=== PATIENT | female | born 1955 | race Caucasian/White ===

== ENCOUNTER 2016-06-27 09:39 | Day surgery (SDC) | payer OTHER, MEDICARE ==
[2016-06-27] MEDS ORDERED: LACTATED RINGERS 1,000 ML IV ONE ×2 (10:07→11:31)
[2016-06-27] MEDS ORDERED: fentaNYL 250 MCG/5 ML VIAL IVP ONE (11:02)
[2016-06-27] MEDS ORDERED: MIDAZOLAM 2 MG/2 ML VIAL IVP ONE (11:02)
== END 2016-06-27 09:40 | disposition home or self-care (01) ==
PROC: 0D5N8ZZ Destruction of Sigmoid Colon, Via Natural or Artificial Opening Endoscopic (ICD-10-PCS; principal; 2016-06-27 10:30)
DX: Z12.11 Encounter for screening for malignant neoplasm of colon (principal); D12.7 Benign neoplasm of rectosigmoid junction; K57.30 Diverticulosis of large intestine without perforation or abscess without bleeding; K64.0 First degree hemorrhoids; I10 Essential (primary) hypertension; K21.9 Gastro-esophageal reflux disease without esophagitis; F31.9 Bipolar disorder, unspecified; F41.0 Panic disorder [episodic paroxysmal anxiety]; Z80.0 Family history of malignant neoplasm of digestive organs; Z88.2 Allergy status to sulfonamides; Z91.040 Latex allergy status
CPT/HCPCS: 45388; J3010; J7120

== ENCOUNTER 2016-08-02 10:54 | Outpatient (CLI) | payer OTHER, MEDICARE ==
--- NOTE | 2016-08-06 16:11 | Mammography Report ---
DIGITAL SCREENING MAMMOGRAM: 08/02/2016 CLINICAL INDICATION: A 60-year-old with family history of breast cancer, history of benign right nick st biopsy, for screening. COMPARISON: The patient's previous mammograms are not available for direct comparison. This will serv e as a new baseline. TECHNIQUE: Routine CC and MLO projections were obtained of the breasts. FINDINGS: The breasts demonstrate scattered fibroglandular densities bilaterally. In the right inner central breast, there is a possible nodule. Further evaluation with spot compression views and possi ble ultrasound is recommended. Punctate, typically benign calcifications are present. No mammographic ally suspicious findings are appreciated in the left breast. IMPRESSION: INCOMPLETE EXAMINATION. RECOMMENDATION: ADDITIONAL EVALUATION OF THE RIGHT BREAST ABOVE. BIRADS CATEGORY 0-INCOMPLETE. STANDARD QUALIFYING STATEMENTS 1. This examination was reviewed with the aid of Computer-Aided Detection (CAD). 2. A negative or benign imaging report should not delay biopsy if clinically suspicious findings are present. Consider surgical consultation if warranted. More than 5% of cancers are not identified by i maging. 3. Dense breasts may obscure an underlying neoplasm. JOB #: [id number] EXT JOB #:[id number]
== END 2016-08-02 10:55 | disposition home or self-care (01) ==
LOC: DI 10:54
PROVIDERS: ATTEND Family Medicine
DX: Z12.31 Encounter for screening mammogram for malignant neoplasm of breast (principal); Z80.3 Family history of malignant neoplasm of breast
CPT/HCPCS: 77067

== ENCOUNTER 2016-08-16 13:01 | Outpatient (CLI) | payer OTHER, MEDICARE ==
--- NOTE | 2016-08-16 15:55 | Ultrasound Report ---
REVISED: THIS REPORT WAS ORIGINALLY SIGNED ON 08/17/2016 @ 0941 ORDERS LINKED ON 08/28/2016 ADDITIONAL VIEWS OF THE RIGHT BREAST AND RIGHT BREAST ULTRASOUND: 08/16/2016 CLINICAL HISTORY: This is a 60-year-old female who has a small mass noted on recent screening mammogram dated 08/02/2016 in the 3 o'clock position of the right breast. Patient returns for additional views of the right breast and right breast ultrasound for further evaluation. Patient had a mother with breast cancer at age 74. Patient had a benign needle biopsy of the right breast in the past. TECHNIQUE: Coned-down compression craniocaudad and oblique lateral views of the right breast were obtained with Hologic full-field digital mammography. FINDINGS: A 1.2 cm by 0.7 cm by 1.1 cm oval-shaped mass is noted in the 3 o' clock position of the right breast 8 cm posteromedial to the right nipple. This mass is well circumscribed and has a benign appearance. Recommend a right breast ultrasound for further evaluation. RIGHT BREAST ULTRASOUND TECHNIQUE: Real-time scanning was performed with b2b outside sales representative static images obtained. FINDINGS: The medial aspect of the right breast was scanned in detail in the area of concern within the 3 o'clock position. No cyst or solid mass was noted in this region. Since no significant abnormality was noted on ultrasound, further evaluation is dependent upon the mammographic findings. The mammographic findings indicate that the small mass at the 3 o'clock position has benign features. It should be followed with a repeat right mammogram in 6 months for further evaluation. IMPRESSION: A 1.2 CM IN DIAMETER WELL-CIRCUMSCRIBED SOLID MASS IS NOTED IN THE 3 O'CLOCK POSITION OF THE RIGHT BREAST. THIS MASS WAS ONLY NOTED ON MAMMOGRAPHY. IT MOST LIKELY IS OF BENIGN ETIOLOGY. RECOMMEND PATIENT BE FOLLOWED WITH A REPEAT RIGHT MAMMOGRAM IN 6 MONTHS FOR FURTHER EVALUATION. BI-RADS category , probably benign findings. Short interval followup imaging study recommended. COMMENT: Patient was informed of the probably benign results by Dr. Ojeda. He recommended to her to return for repeat right mammogram in 6 months for further evaluation. STANDARD QUALIFYING STATEMENTS 1. This examination was reviewed with the aid of Computer-Aided Detection (CAD). 2. A negative or benign imaging report should not delay biopsy if clinically suspicious findings are present. Consider surgical consultation if warranted. More than 5% of cancers are not identified by imaging. 3. Dense breasts may obscure an underlying neoplasm. JOB #: [id number] EXT JOB #: [id number] [facility]PITALTimothy
== END 2016-08-16 13:02 | disposition home or self-care (01) ==
LOC: DI 13:01
PROVIDERS: ATTEND Family Medicine
DX: N63 Unspecified lump in breast (principal); Z80.3 Family history of malignant neoplasm of breast
CPT/HCPCS: 76642

== ENCOUNTER 2016-09-02 09:04 | Emergency (ER) | payer OTHER, MEDICARE ==
[2016-09-02] MEDS ORDERED: BENZONATATE 100 MG CAPSULE PO STA (10:11)
[2016-09-02] MEDS ORDERED: ALBUTEROL NEB 2.5 MG/3 ML INH STA (10:11)
[2016-09-02] MEDS ORDERED: guaiFENesin/DEXTROMETHORPHAN 10 ML UDC PO STA (10:12)
--- NOTE | 2016-09-02 10:15 | ED Physician Documentation ---
History of Present Illness - Stated complaint Stated Complaint: COUGH - Chief complaint Chief Complaint: Resp - Additonal information Additional information: hx from pt 60 femlae sick for 5 days cough wheezing congestion ROBBINS rest of family sick with same but less severe and improved spont no foreign travel Review of Systems Constitutional: reports: Fever (subj), Myalgias Ears: denies: Ear pain Nose: denies: Congestion Respiratory: reports: Dyspnea, Cough, Wheezing GI: denies: Abdominal Pain Musculoskeletal: denies: Extremity swelling Immunocompromised: denies: Immunocompromised PD PAST MEDICAL HISTORY - Past Medical History Cardiovascular: Hypertension, Other Respiratory: Pneumonia, Sleep apnea Endocrine/Autoimmune: None GI: GERD, Hemorrhoids : Frequency HEENT: None Psych: Anxiety, Bipolar disorder, Panic attacks, Post traumatic stress disorder , Other Musculoskeletal: Osteoarthritis Derm: None - Past Surgical History General: Other Ortho: Other /[employer]PRESENTATIVE: Other HEENT: Tonsil/Adenoidectomy - Present Medications Home Medications: Ambulatory Orders Medication Instructions Recorded Confirmed Alprazolam 0.5 mg PO TID 06/27/16 09/02/16 Bupropion HCl [Bupropion HCl Sr] 150 mg PO BID 06/27/16 09/02/16 Buspirone HCl 30 mg PO DAILY 06/27/16 09/02/16 FLUoxetine [PROzac] 10 mg PO DAILY 06/27/16 09/02/16 Hydrochlorothiazide 50 mg PO DAILY 06/27/16 09/02/16 Levothyroxine Sodium 25 mcg PO DAILY 06/27/16 09/02/16 [place] Carbonate [[place] 600 mg PO DAILY 06/27/16 09/02/16 Carbonate ER] Pantoprazole [Protonix] 40 mg PO BID 06/27/16 09/02/16 Prazosin [Minipress] 1 mg PO QPM 06/27/16 09/02/16 Trazodone HCl 100 mg PO DAILY 06/27/16 09/02/16 Albuterol Sulfate [Proair Hfa 2 puffs INH Q4H PRN #1 inhaler 09/02/16 Inhaler] Benzonatate [Tessalon] 100 mg PO TID PRN #20 capsule 09/02/16 Clonazepam 1 tab PO BID 09/02/16 09/02/16 Olmesartan Medoxomil [Benicar] 100 mg PO DAILY 09/02/16 09/02/16 - Allergies Allergies/Adverse Reactions: Allergies Allergy/AdvReac Type Severity Reaction Status Date / Time Sulfa (Sulfonamide Allergy Edema Verified 09/02/16 09:10 Antibiotics) adhesive tape AdvReac Unknown Verified 09/02/16 09:10 risperidone AdvReac Unknown Verified 09/02/16 09:10 - Social History Does the pt smoke?: No Smoking Status: Never smoker PD ED PE NORMAL - Vitals Vital signs reviewed: Yes - General General: Alert and oriented X 3 - HEENT HEENT: PERRL - Neck Neck: Supple, no meningeal sign - Cardiac Cardiac: RRR - Respiratory Respiratory: No respiratory distress, Other (harsh cough exp wheeze) - Extremities Extremities: Other (ankle surgical scar no calf swel of TTP) - Neuro Neuro: Alert and oriented X 3, No motor deficit Results - Vitals Vitals: Vital Signs - 24 hr 09/02/16 09/02/16 09/02/16 09:09 10:25 11:28 Temperature 36.9 C Heart Rate 96 81 84 Respiratory 18 16 20 Rate Blood Pressure 140/91 H 130/64 O2 Saturation 99 97 Oxygen O2 Source Room air - Rads (name of study) cxr Radiology: See rad report (no acute) Departure - Departure Disposition: 01 Home, Self Care Clinical Impression: Bronchitis Condition: Good Instructions: ED URI Viral Follow-Up: Garrett Bowman DO [Primary Care Provider] - Prescriptions: Albuterol Sulfate [Proair Hfa Inhaler] 2 puffs INH Q4H PRN #1 inhaler PRN Reason: Shortness Of Air/Wheezing Benzonatate [Tessalon] 100 mg PO TID PRN #20 capsule PRN Reason: to ease cough Comments: The xray was fine - no pneumonia And the other family members got better without antibiotics. So most likely this is a viral infection and I do not think antibiotics will help. But I did write for you to have an inhaler and some cough medication to ease your symptoms
[2016-09-02] MEDS ORDERED: ALBUTEROL NEB 2.5 MG/3 ML INH ONE (10:18)
[2016-09-02] MEDS ORDERED: guaiFENesin/DEXTROMETHORPHAN 10 ML UDC ONE (10:30)
[2016-09-02] MEDS ORDERED: BENZONATATE 100 MG CAPSULE PO ONE (10:30)
--- NOTE | 2016-09-02 11:47 | XRAY Preliminary Report ---
Exam: XR Chest 2 View PA/LAT IMPRESSION: No focal consolidation. [facility] SITE ID: [id number]
--- NOTE | 2016-09-02 11:49 | XRAY Report ---
EXAM: CHEST RADIOGRAPHY EXAM DATE: 09/02/2016 11:23 AM. CLINICAL HISTORY: Cough. COMPARISON: Chest radiograph dated 05/11/2014. TECHNIQUE: 2 views. FINDINGS: Lungs/Pleura: No focal opacities evident. No pleural effusion. No pneumothorax. Normal volumes. Mediastinum: Heart and mediastinal contours are unremarkable. Other: None. IMPRESSION: No focal consolidation. [facility] Referring Provider Line: [phone] SITE ID: [id number]
[2016-09-02 12:37] VITALS: BP 126/68
== END 2016-09-02 12:45 | disposition home or self-care (01) ==
LOC: ED 09:04
DX: J40 Bronchitis, not specified as acute or chronic (principal); I10 Essential (primary) hypertension; G47.30 Sleep apnea, unspecified; K21.9 Gastro-esophageal reflux disease without esophagitis; M19.90 Unspecified osteoarthritis, unspecified site
CPT/HCPCS: 71020; 94640; 99283; A9270; J7613

== ENCOUNTER 2017-01-07 15:48 | Outpatient (CLI) | payer OTHER, MEDICARE | END 2017-01-07 15:49 | disposition home or self-care (01) | LOC: SC 15:48 | PROVIDERS: ATTEND Internal Medicine Pulmonary Disease | DX: G47.10 Hypersomnia, unspecified (principal); G47.8 Other sleep disorders; R06.83 Snoring; G47.00 Insomnia, unspecified | CPT/HCPCS: 99203; 99212 ==

== ENCOUNTER 2017-03-14 09:57 | Outpatient (CLI) | payer BC, MEDICARE ==
--- NOTE | 2017-03-14 11:04 | Mammography Report ---
DIGITAL DIAGNOSTIC RIGHT MAMMOGRAM: 03/14/2017 CLINICAL INDICATION: Followup nodule right inner breast. TECHNIQUE: Right CC, MLO, true lateral, spot compression views. COMPARISON: 08/16/2016, 08/02/2016 FINDINGS: The right breast again demonstrates scattered fibroglandular densities. The nodule in the 3 o'clock position right breast is stable, measuring 10 mm maximal diameter. A few punctate, typically benign calcifications are present. Post-biopsy changes at the 11 o'clock position of the right breast are stable, no suspicious masses, clustered microcalcifications, or regions of architectural distortion are identified. IMPRESSION: BENIGN FINDINGS, WITH A STABLE CIRCUMSCRIBED NODULE AT THE 3 O' CLOCK POSITION OF THE RIGHT BREAST. RECOMMENDATION: Routine annual screening, next due in July 2017. BIRADS category 2 - benign findings. STANDARD QUALIFYING STATEMENTS 1. This examination was reviewed with the aid of Computer-Aided Detection (CAD) . 2. A negative or benign imaging report should not delay biopsy if clinically suspicious findings are present. Consider surgical consultation if warranted. More than 5% of cancers are not identified by imaging. 3. Dense breasts may obscure an underlying neoplasm. SANTOSH/ TD: 03/14/2017 12:03 DAYNA
== END 2017-03-14 09:58 | disposition home or self-care (01) ==
LOC: DI 09:57
PROVIDERS: ATTEND Family Medicine
DX: N63.12 Unspecified lump in the right breast, upper inner quadrant (principal); N63.14 Unspecified lump in the right breast, lower inner quadrant

== ENCOUNTER 2017-05-20 09:15 | Outpatient (CLI) | payer BC, MEDICARE | END 2017-05-20 09:16 | disposition home or self-care (01) | LOC: SC 09:15 | PROVIDERS: ATTEND Nurse Practitioner Family | DX: G47.33 Obstructive sleep apnea (adult) (pediatric) (principal) | CPT/HCPCS: 99212; 99214 ==

== ENCOUNTER 2017-08-15 16:43 | Outpatient (CLI) | payer BC, MEDICARE ==
--- NOTE | 2017-08-20 17:25 | Mammography Report ---
DIGITAL SCREENING MAMMOGRAM: 08/15/2017 CLINICAL INDICATION: A 61-year-old with history of benign right breast biopsy for screening. COMPARISON: 07/2016, 02/2017. TECHNIQUE: Routine CC and MLO projections were obtained of the breasts. FINDINGS: The breasts again demonstrate scattered fibroglandular densities bilaterally. Post-biopsy changes in the right breast are stable. A few punctate, typically benign calcifications are present. Circumscribed nodule in the medial right breast is unchanged. No suspicious masses, clustered microcalcifications, or regions of architectural distortion are identified. IMPRESSION: BENIGN FINDINGS. RECOMMENDATION: Routine annual screening unless otherwise clinically indicated. BIRADS category 2 benign findings. STANDARD QUALIFYING STATEMENTS 1. This examination was reviewed with the aid of Computed-Aided Detection (CAD). 2. A negative or benign imaging report should not delay biopsy if clinically suspicious findings are present. Consider surgical consultation if warranted. More than 5% of cancers are not identified by imaging. 3. Dense breasts may obscure an underlying neoplasm. TD: 08/20/2017 15:29
== END 2017-08-15 16:44 | disposition home or self-care (01) ==
LOC: DI 16:43
PROVIDERS: ATTEND Family Medicine
DX: Z12.31 Encounter for screening mammogram for malignant neoplasm of breast (principal)
CPT/HCPCS: 77067

== ENCOUNTER 2017-08-27 09:12 | Outpatient (CLI) | payer BC, MEDICARE | END 2017-08-27 09:13 | disposition home or self-care (01) | LOC: DI 09:12 | PROVIDERS: ATTEND Family Medicine | DX: R01.1 Cardiac murmur, unspecified (principal); I51.7 Cardiomegaly | CPT/HCPCS: 93306 ==

== ENCOUNTER 2017-09-05 08:50 | Outpatient (CLI) | payer BC, MEDICARE ==
[2017-09-05] MEDS ORDERED: REGADENOSON 0.4 MG/5 ML SYRINGE IVP ONE ×2 (10:27→11:19)
--- NOTE | 2017-09-05 14:10 | Nuclear Medicine Report ---
Procedure Date: 09/05/2017 Accession Number: [id number] / [id number] Procedure: NM - Myocardial Perfusion STR/RST CPT Code: FULL RESULT: EXAM: SINGLE-ISOTOPE PHARMACOLOGICAL STRESS TEST WITH REGADENOSON. SINGLE-ISOTOPE AND ONE-DAY REST/STRESS MYOCARDIAL PERFUSION SCANS WITH TOMOGRAPHIC IMAGING, QUANTITATIVE ANALYSIS, WALL MOTION ANALYSIS AND CALCULATION OF EJECTION FRACTION. EXAM DATE: 09/05/2017 01:15 PM. CLINICAL HISTORY: CHEST PAIN. COMPARISON: None available. TECHNIQUE: After the intravenous administration of 10.4 mCi of Tc-99m sestamibi, a rest myocardial perfusion scan was done with tomography. Motion correction was applied when appropriate. After an appropriate delay, pharmacological stress was performed with the infusion of 0.4 mg regadenoson per protocol. According to protocol, 42.9 mCi of Tc-99m sestamibi was injected for stress myocardial perfusion scan. Motion correction was applied when appropriate. Gated tomographic images were obtained for wall motion analysis and computation of left ventricular ejection fraction. EKG interpretation provided by the nurse practitioner: Less than 0.[address] depression. "Mild infusion sxs" FINDINGS: Images show a small, moderate severity fixed distal septal perfusion defect. No other convincing fixed or reversible perfusion defects. Computer generated stress scores: Summed stress score 2 Summed rest score 2 Summed difference score 2 Wall motion analysis demonstrates no focal wall motion abnormality. The left ventricular end-diastolic volume is 54 cc. The left ventricular end-systolic volume is 7 cc. The left ventricular ejection fraction is calculated to be 87%. IMPRESSION: 1. Images show a small, moderate severity fixed distal septal defect. This may represent normal variant septal thickening. No other convincing fixed or reversible perfusion defects. 2. Left ventricular ejection fraction of 87%. 3. Normal segmental and global wall motion. 4. Normal left ventricular cavity size, no change with stress. 5. Based on the computer generated stress scores, mildly abnormal study, mild ischemia. Based on visual analysis, this is believed to be an overestimate. [facility]
--- NOTE | 2017-09-05 16:15 | CARDIAC PROCEDURE NOTE ---
DATE OF SERVICE: 09/05/2017 Physician: ERICA Jimenez PCP: Dr. Garrett Bowman. PROCEDURE: Pharmacologic cardiac stress test. PROCEDURE SYMPTOMS: Chest pain. CARDIAC RISK FACTORS 1. Age. 2. Hypertension. 3. Family history. PREVIOUS CARDIAC PROCEDURES: None. CLINICAL HISTORY: A 61-year-old female without known coronary artery disease. She has no current symptoms. No medications were held. INITIAL RESTING VITAL SIGNS: Blood pressure 144/82, heart rate 77, height 64 inches, weight 176 pounds, BMI 30.32. PROCEDURE AND FINDINGS: The patient identity and date verified. Consent signed. Pharmaceutical check. Pharmacologic stress testing was performed with Lexiscan at a dose of 0.4 mg over 10 seconds. The heart rate increased to 102 beats per minute from the infusion. Blood pressure response was normal during the stress procedure. The patient developed mild infusion- related symptoms, which include shallow breathing, tingly feet, and facial warmth. The symptoms resolved spontaneously. The resting ECG demonstrated normal sinus rhythm with nonspecific flattened T waves. Maximum ST segment depression with stress was less than 0.5 mm. There was rare ectopy. FINAL IMPRESSIONS 1. Negative electrocardiogram for ischemia in the setting of vasodilator stress. 2. Nondiagnostic stress test for angina. 3. Rare PVC. DISCUSSION AND RECOMMENDATIONS: Await myocardial perfusion report. TD: 09/05/2017 12:50 MTDD
[2017-09-05 19:42] VITALS: BP 144/82
== END 2017-09-05 08:51 | disposition home or self-care (01) ==
LOC: DI 08:50
PROVIDERS: ATTEND Family Medicine
DX: R07.9 Chest pain, unspecified (principal); I10 Essential (primary) hypertension
CPT/HCPCS: 78452; 93017; A9500; J2785

== ENCOUNTER 2017-12-12 11:43 | Outpatient (CLI) | payer BC, MEDICARE ==
[2017-12-12 19:04] LABS: ALBUMIN 4.2 g/dL (3.2-5.5); ALBUMIN/GLOBULIN RATIO 1.8 (1.0-2.2); CALCIUM 9.9 mg/dL (8.5-10.3); CREATININE 0.8 mg/dL (0.4-1.0); TOTAL PROTEIN 6.5 g/dL (6.7-8.2)
== END 2017-12-12 11:44 ==
LOC: LAB.WCP 11:43
PROVIDERS: ATTEND Family Medicine
DX: I10 Essential (primary) hypertension (principal)
CPT/HCPCS: 36415; 80053

== ENCOUNTER 2018-10-06 14:51 | Outpatient (CLI) | payer BC, MEDICARE ==
--- NOTE | 2018-10-07 08:48 | Mammography Report ---
Reason: SCREENING MAMMO Procedure Date: 10/06/2018 Accession Number: [id number] / [id number] Procedure: EMMANUEL - Screening Mammo w/Aron CPT Code: FULL RESULT: EXAM: Screening Mammo w/Aron DATE: 10/06/2018 3:37 PM CLINICAL HISTORY: Screening encounter. Family history of breast cancer in the mother at the age of 71. History of right breast lumpectomy in 1991 for inconclusive biopsy final pathology was benign. TECHNIQUE: (B) - Bilateral CC and MLO views were obtained. COMPARISON: 08/15/2017 through 08/02/2016. PARENCHYMAL PATTERN: (A) - The breast(s) demonstrate(s) scattered fibroglandular densities. FINDINGS: Postsurgical changes in the right breast are stable. There are no suspicious masses, calcifications, or areas of distortion. IMPRESSION: Benign findings. BI-RADS category 2. RECOMMENDATION: (ANNUAL) - Recommend routine annual screening mammography. BI-RADS CATEGORY: (2) - Benign Findings. STANDARD QUALIFYING STATEMENTS: 1. This examination was not reviewed with the aid of Computer-Aided Detection (CAD). 2. A negative or benign imaging report should not preclude biopsy if clinically suspicious findings are present. 3. Dense breasts may obscure an underlying neoplasm. 4. This examination was reviewed with the aid of 3D breast imaging (tomosynthesis).
== END 2018-10-06 14:52 | disposition home or self-care (01) ==
LOC: DI 14:51
DX: Z12.31 Encounter for screening mammogram for malignant neoplasm of breast (principal); Z80.3 Family history of malignant neoplasm of breast
CPT/HCPCS: 77063; 77067

== ENCOUNTER 2018-11-19 09:24 | Outpatient (CLI) | payer BC, MEDICARE ==
--- NOTE | 2018-11-20 09:52 | DEXA Report ---
Reason: POSTMENOPAUSAL Procedure Date: 11/19/2018 Accession Number: [id number] / [id number] Procedure: DEX - Dexa Spine and/or Hip CPT Code: FULL RESULT: EXAM: Dexa Spine and/or Hip DATE: 11/19/2018 10:00 AM CLINICAL HISTORY: POSTMENOPAUSAL TECHNIQUE: Dual energy x-ray absorptiometry (DXA) was performed on a [employer] System. Regions measured are the AP Spine, femoral neck, and if needed forearm. COMPARISON: None. In accordance with the International Society for Clinical Densitometry (ISCD) guidelines, data from previous exams may be reanalyzed using current recommendations and techniques. This is done to allow a more accurate basis for comparison with the current study. FINDINGS: The data for the lumbar spine is as follows: BMD (g/cm/cm) T-SCORE Z-SCORE REGION L1 1.265 1.1 2.4 L2 1.357 1.3 2.6 L3 1.260 0.5 1.8 L4 1.040 -1.3 0.0 TOTAL 1.228 0.4 1.7 NOTE: All evaluable vertebrae are used for classification The data for the hip is as follows: BMD (g/cm/cm) T-SCORE Z-SCORE REGION Neck 0.788 -1.8 -0.5 TOTAL 0.899 -0.9 0.1 NOTE: The femoral neck or total proximal femur, whichever is lowest, is used for classification. IMPRESSION: THE WHO CLASSIFICATION BASED ON THE INTERNATIONAL REFERENCE STANDARD IS OSTEOPENIA. THE FRACTURE RISK IS INCREASED. RECOMMENDATION: Patients with diagnosis of osteoporosis or osteopenia should have regular bone mineral density assessment. For those eligible for Medicare, routine testing is allowed once every 2 years. Testing frequency can be increased for patients who have rapidly progressing disease or for those who are receiving medical therapy to restore bone mass. COMMENT: World Health Organization (WHO) definitions for osteoporosis and osteopenia: NORMAL BMD: T-score at -1.0 or higher, fracture risk is low OSTEOPENIA BMD: T-score between -1.0 and -2.5, fracture risk is increased. OSTEOPOROSIS BMD: T-score at -2.5 or lower, fracture risk is high. National Osteoporosis Foundation recommends: 1. Obtain adequate dietary calcium (at least 1200 mg per day) and vitamin D (400-800 international units per day). 2. Participate, as appropriate, in regular weightbearing and muscle-strengthening exercise. 3. Avoid tobacco use and reduce alcohol and caffeine intake. 4. For more detailed information see the website at www.NOF.org.
== END 2018-11-19 09:25 | disposition home or self-care (01) ==
LOC: DI 09:24
PROVIDERS: ATTEND Family Medicine
DX: M85.89 Other specified disorders of bone density and structure, multiple sites (principal); Z78.0 Asymptomatic menopausal state
CPT/HCPCS: 77080

== ENCOUNTER 2019-01-16 11:02 | Outpatient (CLI) | payer BC, MEDICARE ==
--- NOTE | 2019-01-16 12:47 | Mammography Report ---
Reason: MASTALGIA Procedure Date: 01/16/2019 Accession Number: [id number] / [id number] Procedure: EMMANUEL - Diagnostic Dig LT CPT Code: FULL RESULT: EXAM: Diagnostic Dig LT DATE: 01/16/2019 11:56 AM CLINICAL HISTORY: Left breast pain TECHNIQUE: (L) - Left CC and MLO views were obtained. COMPARISON: 10/06/2018, 08/15/2017, 03/14/2017 08/16/2016, 08/02/2016 PARENCHYMAL PATTERN: (A) - The breasts demonstrate scattered fibroglandular densities. FINDINGS: No significant interval change. There are no suspicious masses, calcifications, or areas of distortion in the left breast. IMPRESSION: Negative examination. BI-RADS category 1. RECOMMENDATION: (ANNUAL) - Recommend routine annual screening mammography. Return to routine screening September 2019 BI-RADS CATEGORY: (1) - Negative. STANDARD QUALIFYING STATEMENTS: 1. This examination was not reviewed with the aid of Computer-Aided Detection (CAD). 2. A negative or benign imaging report should not preclude biopsy if clinically suspicious findings are present. 3. Dense breasts may obscure an underlying neoplasm. 4. This examination was reviewed with the aid of 3D breast imaging (tomosynthesis).
== END 2019-01-16 11:03 | disposition home or self-care (01) ==
LOC: DI 11:02
PROVIDERS: ATTEND Family Medicine
DX: N64.4 Mastodynia (principal)

== ENCOUNTER 2019-03-05 10:26 | Outpatient (CLI) | payer BC, MEDICARE ==
[2019-03-05 10:37] LABS: BASOPHILS # (AUTO) 0.1 10^3/uL (0.0-0.1); BASOPHILS % (AUTO) 0.8 %; EOSINOPHILS # (AUTO) 0.1 10^3/uL (0.0-0.7); EOSINOPHILS % (AUTO) 0.8 %; HGB - HEMOGLOBIN 13.7 g/dL (12.0-16.0); LYMPHOCYTES # (AUTO) 1.4 10^3/uL (1.5-3.5); LYMPHOCYTES % (AUTO) 21.7 %; MEAN CORPUSCULAR HEMOGLOBIN 33.8 pg (27.0-31.0); MEAN CORPUSCULAR HGB CONC 35.1 g/dL (32.0-36.0); MEAN CORPUSCULAR VOLUME 96.3 fL (81.0-99.0); MEAN PLATELET VOLUME 9.3 fL (7.9-10.8); MONOCYTES # (AUTO) 0.4 10^3/uL (0.0-1.0); MONOCYTES % (AUTO) 6.5 %; NEUTROPHILS # (AUTO) 4.5 10^3/uL (1.5-6.6); NEUTROPHILS % (AUTO) 69.9 %; PLT - PLATELET COUNT 243 10^3/uL (130-450); RED BLOOD COUNT 4.05 10^6/uL (4.20-5.40); RED CELL DISTRIBUTION WIDTH 13.2 % (12.0-15.0); WHITE BLOOD COUNT 6.4 x10^3/uL (4.8-10.8)
[2019-03-05 10:49] LABS: ALBUMIN 4.3 g/dL (3.2-5.5); ALBUMIN/GLOBULIN RATIO 1.7 (1.0-2.2); BILIRUBIN,TOTAL 1.6 mg/dL (0.2-1.0); CALCIUM 9.6 mg/dL (8.5-10.3); CREATININE 0.9 mg/dL (0.4-1.0); TOTAL PROTEIN 6.9 g/dL (6.7-8.2)
== END 2019-03-05 10:27 | disposition home or self-care (01) ==
LOC: LAB 10:26
PROVIDERS: ATTEND Podiatrist Foot & Ankle Surgery
DX: Z01.812 Encounter for preprocedural laboratory examination (principal)
CPT/HCPCS: 36415; 80053; 85025; 93005

== ENCOUNTER 2019-11-11 09:03 | Outpatient (CLI) | payer OTHER, MEDICARE ==
--- NOTE | 2019-11-11 16:22 | XRAY Report ---
PROCEDURE: Lumbar Spine 2 View INDICATIONS: ACUTE LOW BACK PAIN TECHNIQUE: 3 views of the lumbar spine were acquired. COMPARISON: X-ray thoracic spine 11/11/2019 FINDINGS: Bones: 5 [id number] vertebrae are present. There is there is trace retrolisthesis of L2 on L3, L3 on L4. Moderate disc space narrowing is present at L1-L2, L2-3, L3-4, mild L4-5 and L5-S1. Modera te foraminal narrowing is present at L5-S1.. No vertebral body compression fractures. No suspicious bony lesions. Soft tissues: Overlying bowel gas pattern is normal. No suspicious soft tissue calcifications. IMPRESSION: Multilevel degenerative changes as above most notable at L2-3 and L5-S1. Reviewed by: Cami Gipson MD on 11/11/2019 4:20 PM PDT Approved by: Cami Gipson MD on 11/11/2019 4:20 PM PDT Station ID: [id number]
== END 2019-11-11 23:59 | disposition home or self-care (01) ==
LOC: DI.WCP 09:03
PROVIDERS: ATTEND Family Medicine
DX: M43.16 Spondylolisthesis, lumbar region (principal); M51.36 Other intervertebral disc degeneration, lumbar region; M51.37 Other intervertebral disc degeneration, lumbosacral region; M48.07 Spinal stenosis, lumbosacral region
CPT/HCPCS: 72100

== ENCOUNTER 2020-01-29 13:40 | Outpatient (CLI) | payer OTHER, MEDICARE ==
--- NOTE | 2020-01-29 15:12 | MRI Report ---
PROCEDURE: Lumbar Spine W/O INDICATIONS: CHRONIC LOW BACK PAIN TECHNIQUE: Noncontrast sagittal T1 spin echo and T2 fast echo, coronal T2, sagittal STIR, axial T1 and T2 fast s pin echo through the lumbar spine. COMPARISON: Plain films dated 11.10 FINDINGS: Image quality: Excellent. Alignment and Curvature: 5 lumbar type vertebral bodies are present by plain film. There is mild diff use leftward curvature of the mid/upper lumbar spine. There is loss of normal lumbar lordosis. Mild g rade 1 retrolisthesis of T12 on L1, L1 on L2, L2 on L3, L3 on L4, and L4 on L5. Bone Marrow: Marrow is of normal overall signal. No acute vertebral body compression fractures. Mi ld reactive signal within the end plates adjacent to the T12-L1, L2-L3, L3-L4, and L4-L5 intervertebr al discs. Spinal Cord: Conus medullaris terminates at the L1-L2 disc space level. Visualized cord demonstrate s normal signal and size. Paraspinous Soft Tissues: No paravertebral masses. T12-L1: Moderate disc height loss and desiccation. Mild diffuse disc bulge. Mild facet and ligament flavum hypertrophy. Mild canal stenosis. Mild bilateral foraminal stenosis. L1-L2: Moderate disc height loss and desiccation. Mild diffuse disc bulge. Mild facet and ligament flavum hypertrophy. Mild canal stenosis. Mild bilateral foraminal stenosis. L2-L3: Moderate disc height loss and desiccation. Mild diffuse disc bulge with superimposed broad- based right posterolateral protrusion. Mild facet and ligament flavum hypertrophy. Mild epidural lipo matosis. Mild canal stenosis. Mild bilateral foraminal stenosis. L3-L4: Mild disc height loss and desiccation. Mild diffuse disc bulge. Mild facet and ligament flav um hypertrophy. Mild epidural lipomatosis. Mild canal stenosis. Mild bilateral foraminal stenosis. L4-L5: Mild disc height loss and desiccation. Mild diffuse disc bulge. Mild facet and ligament flav um hypertrophy. Mild canal stenosis. Moderate subarticular foraminal stenosis bilaterally. L5-S1: Mild diffuse disc bulge. Mild disc desiccation. Mild bilateral facet hypertrophy. Mild canal stenosis. Mild bilateral foraminal stenosis. IMPRESSION: 1. Multilevel degenerative disc and facet disease, in addition to epidural lipomatosis and ligamentum flavum hypertrophy. 2. Mild multilevel canal stenoses. 3. Multilevel foraminal stenoses, worst at L4-L5 bilaterally where there are moderate foraminal steno ses present. Reviewed by: Sheri Gómez MD on 01/29/2020 3:11 PM PST Approved by: Sheri Gómez MD on 01/29/2020 3:11 PM PST Station ID: [id number]
== END 2020-01-29 13:41 | disposition home or self-care (01) ==
LOC: DI 13:40
PROVIDERS: ATTEND Family Medicine
DX: M51.36 Other intervertebral disc degeneration, lumbar region (principal); M47.817 Spondylosis without myelopathy or radiculopathy, lumbosacral region; M47.816 Spondylosis without myelopathy or radiculopathy, lumbar region; M48.061 Spinal stenosis, lumbar region without neurogenic claudication; M51.37 Other intervertebral disc degeneration, lumbosacral region; M48.07 Spinal stenosis, lumbosacral region
CPT/HCPCS: 72148

== ENCOUNTER 2020-07-11 08:00 | Outpatient (CLI) | payer OTHER, MEDICARE ==
[2020-07-11 18:01] LABS: BASOPHILS % (AUTO) 0.6 %; EOSINOPHILS # (AUTO) 0.6 10^3/uL (0.0-0.7); HCT - HEMATOCRIT 38.8 % (37.0-47.0); LYMPHOCYTES # (AUTO) 1.1 10^3/uL (1.5-3.5); LYMPHOCYTES % (AUTO) 20.8 %; MEAN CORPUSCULAR HEMOGLOBIN 33.5 pg (27.0-31.0); MEAN CORPUSCULAR HGB CONC 33.5 g/dL (32.0-36.0); MEAN PLATELET VOLUME 10.1 fL (7.9-10.8); MONOCYTES # (AUTO) 0.3 10^3/uL (0.0-1.0); NEUTROPHILS # (AUTO) 3.2 10^3/uL (1.5-6.6); NEUTROPHILS % (AUTO) 60.2 %; PLT - PLATELET COUNT 215 10^3/uL (130-450); RED BLOOD COUNT 3.88 10^6/uL (4.20-5.40); RED CELL DISTRIBUTION WIDTH 12.9 % (12.0-15.0); WHITE BLOOD COUNT 5.3 x10^3/uL (4.8-10.8)
[2020-07-11 18:17] LABS: ALBUMIN 4.6 g/dL (3.2-5.5); ALBUMIN/GLOBULIN RATIO 2.2 (1.0-2.2); ALKALINE PHOSPHATASE 70 IU/L (42-121); ALT ALANINE AMINOTRANSFERASE 13 IU/L (10-60); AST ASPARTATE AMINOTRANSFERASE 14 IU/L (10-42); BILIRUBIN,TOTAL 1.4 mg/dL (0.2-1.0); BUN - BLOOD UREA NITROGEN 18 mg/dL (6-20); CALCIUM 9.5 mg/dL (8.5-10.3); CARBON DIOXIDE - CO2 27 mmol/L (21-32); CHLORIDE 101 mmol/L (101-111); CHOL/HDL RATIO 2.2 (<4.4); CHOLESTEROL 249 mg/dL; CREATININE 0.8 mg/dL (0.4-1.0); GFR - MDRD 73 (>89); GLUCOSE 95 mg/dL (70-100); HDL CHOLESTEROL 112 mg/dL; LDL CHOLESTEROL,CALCULATED 118 mg/dL; LDL/HDL RATIO 1.1 (<4.4); POTASSIUM 3.6 mmol/L (3.5-5.0); SODIUM 139 mmol/L (135-145); TOTAL PROTEIN 6.7 g/dL (6.7-8.2); TRIGLYCERIDES 97 mg/dL; VLDL CHOLESTEROL 19 mg/dL
[2020-07-11 18:30] LABS: THYROID STIMULATING HORMONE 1.9 uIU/mL (0.34-5.60)
== END 2020-07-11 23:59 | disposition home or self-care (01) ==
LOC: LAB.WCP 08:00
PROVIDERS: ATTEND Family Medicine
DX: E78.5 Hyperlipidemia, unspecified (principal); E03.9 Hypothyroidism, unspecified; I10 Essential (primary) hypertension
CPT/HCPCS: 36415; 80053; 80061; 83721; 84443; 85025

== ENCOUNTER 2020-08-23 09:46 | Outpatient (CLI) | payer OTHER, MEDICARE ==
--- NOTE | 2020-08-24 14:08 | Mammography Report ---
BILATERAL DIGITAL SCREENING MAMMOGRAM 3D/2D: 08/23/2020 CLINICAL: Routine screening. Comparison is made to exams dated: 10/06/2018 mammogram, 08/15/2017 mammogram, 03/14/2017 mammogram, mammogram, and 08/02/2016 mammogram - [facility]. There are scattered fibr oglandular elements in both breasts. No significant masses, calcifications, or other findings are seen in either breast. There has been no significant interval change. IMPRESSION: NEGATIVE There is no mammographic evidence of malignancy. A 1 year screening mammogram is recommended. This exam was interpreted at Station ID: [id number]. NOTE: For mammograms, a report in lay terms will be sent to the patient. Approximately 15% of breast malignancies will not be visualized mammographically. In the management of a palpable breast mass, a negative mammogram must not discourage biopsy of a clinically suspicious lesion. Electronically Signed By: Mickey Kim M.D. aty/aaronrad:08/23/2020 14:09:12 ACR BI-RADS Category 1: Negative 3341F PARENCHYMAL PATTERN: (A) - The breast(s) demonstrate(s) scattered fibroglandular densities. BI-RADS CATEGORY: (1) - 1 RECOMMENDATION: (ANNUAL) - Recommend routine annual screening mammography. [id number] 1 year screening LATERALITY: (B)
== END 2020-08-23 09:47 | disposition home or self-care (01) ==
LOC: DI 09:46
DX: Z12.31 Encounter for screening mammogram for malignant neoplasm of breast (principal)

== ENCOUNTER 2020-09-14 11:14 | Outpatient (CLI) | payer OTHER, MEDICARE ==
--- NOTE | 2020-09-14 13:13 | XRAY Report ---
PROCEDURE: Tib/Fib RT INDICATIONS: CONTUSION OF R LOWER LEG TECHNIQUE: 2 views of the tibia and fibula were acquired. COMPARISON: None currently available. FINDINGS: Bones: No acute fractures or dislocations. No suspicious bony lesions. Note is made of prior ankle arthroplasty, calcaneal osteotomy, and interosseous membrane fusion at the distal tibia/fibula with 2 transverse screws in this area and no evidence of device loosening or disruption. Soft tissues: No suspicious soft tissue calcifications or masses. IMPRESSION: Old operative procedure distal tibia/fibula and calcaneus, but no acute disease. Normal alignment. Reviewed by: Mykel Penn MD on 09/14/2020 1:12 PM PDT Approved by: Mykel Penn MD on 09/14/2020 1:12 PM PDT Station ID: [id number]
== END 2020-09-14 11:15 | disposition home or self-care (01) ==
LOC: DI.N 11:14
PROVIDERS: ATTEND Nurse Practitioner
DX: S80.11XA Contusion of right lower leg, initial encounter (principal)

== ENCOUNTER 2021-05-31 09:15 | Emergency (ER) | payer OTHER, MEDICARE ==
--- NOTE | 2021-05-31 09:39 | ED Physician Documentation ---
PD HPI BACK PAIN - Stated complaint Stated Complaint: BACK PX - Chief complaint Chief Complaint: Back Pain - History obtained from History obtained from: Patient - History of Present Illness Timing - onset: How many days ago (4) Timing - duration: Days (4) Timing - details: Abrupt onset (onset of left lateral lower ribs Saturday when fell and struck the left lateral chest. Continues with pain locally with movement and breathing. No cough nor fevers.), Still present Location: Mid, Lower, Left Quality: Pain, Sharp Associated symptoms: No: Fever, Weakness, Numbness, Incontinent of urine Improves with: Rest Worsened by: Movement, Palpation, Other (breathing) Contributing factors: Trauma (she states she slipped and fell, striking left posterior/lateral chest wall.) Similar symptoms before: Has not had sx before Recently seen: Not recently seen Review of Systems Constitutional: denies: Fever, Chills Nose: denies: Rhinorrhea / runny nose, Congestion Throat: denies: Sore throat Respiratory: denies: Cough GI: denies: Abdominal Pain, Nausea, Vomiting, Diarrhea Skin: denies: Rash PD PAST MEDICAL HISTORY - Past Medical History Cardiovascular: Hypertension, High cholesterol, Other Respiratory: Pneumonia, Sleep apnea Endocrine/Autoimmune: None, HyPOthyroidism GI: GERD, Hemorrhoids : Frequency HEENT: None Psych: Anxiety, Bipolar disorder, Panic attacks, Post traumatic stress disorder, Other Musculoskeletal: Osteoarthritis Derm: None - Past Surgical History General: Other Ortho: Other /DIETARY CLERK: Other HEENT: Tonsil/Adenoidectomy - Present Medications Home Medications: Ambulatory Orders Medication Instructions Recorded Confirmed ALPRAZolam [Alprazolam] 1.5 mg PO TID 06/27/16 05/31/21 Buspirone HCl 60 mg PO DAILY 06/27/16 05/31/21 FLUoxetine [PROzac] 15 mg PO DAILY 06/27/16 05/31/21 Prazosin [Minipress] 5 mg PO QPM 06/27/16 05/31/21 buPROPion HCL [Bupropion HCl Sr] 300 mg PO BID 06/27/16 05/31/21 hydroCHLOROthiazide 25 mg PO DAILY 06/27/16 05/31/21 [Hydrochlorothiazide] clonazePAM [Clonazepam] 3 mg PO BID 09/02/16 05/31/21 Cariprazine HCl [Vraylar] 3 mg PO DAILY 05/31/21 05/31/21 Gabapentin [Neurontin] 900 mg PO DAILY 05/31/21 05/31/21 HYDROcod/ACETAM 5/325 [[place] 5/325] 1 ea PO Q6H PRN #18 tablet 05/31/21 Meloxicam [Mobic] 15 mg PO DAILY 05/31/21 05/31/21 lamoTRIgine [LaMICtal] 225 mg PO DAILY 05/31/21 05/31/21 - Allergies Allergies/Adverse Reactions: Allergies Allergy/AdvReac Type Severity Reaction Status Date / Time methotrexate Allergy Anaphylaxis Verified 05/31/21 09:31 Sulfa (Sulfonamide Allergy Edema Verified 09/02/16 09:10 Antibiotics) adhesive tape AdvReac Unknown Verified 09/02/16 09:10 risperidone AdvReac Unknown Verified 09/02/16 09:10 - Social History Does the pt smoke?: No Smoking Status: Never smoker PD ED PE NORMAL - Vitals Vital signs reviewed: Yes - General General: Alert and oriented X 3, Well developed/nourished - HEENT HEENT: Atraumatic - Neck Neck: Supple, no meningeal sign, No bony TTP - Cardiac Cardiac: RRR, No murmur - Respiratory Respiratory: Clear bilaterally, Other (left lateral lower thoracic chestwall with local tenderness without focal deformity. MIld local purple to green bruising. ) - Abdomen Abdomen: Normal bowel sounds, Soft, Non tender, No organomegaly - Derm Derm: Normal color, Warm and dry - Extremities Extremities: Normal ROM s pain - Neuro Neuro: Alert and oriented X 3, No motor deficit, No sensory deficit, Normal speech Results - Vitals Vitals: Vital Signs - 24 hr 05/31/21 05/31/21 09:28 11:02 Temperature 36.4 C L 36.4 C L Heart Rate 69 73 Respiratory 16 16 Rate Blood Pressure 165/73 H 147/90 H O2 Saturation 100 94 Oxygen O2 Source Room air - Rads (name of study) left ribs with chest Radiology: Prelim report reviewed (normal lung chowdary. No visible/displaced rib fractures.), See rad report PD MEDICAL DECISION MAKING - ED course Complexity details: reviewed results, considered differential, d/w patient Departure - Departure Disposition: 01 Home, Self Care Clinical Impression: Fall from slip, trip, or stumble Qualifiers: Encounter type: initial encounter Qualified Code(s): W01.0XXA - Fall on same level from slipping, tripping and stumbling without subsequent striking against object, initial encounter Chest wall contusion Qualifiers: Encounter type: initial encounter Laterality: left Qualified Code(s): S20.212A - Contusion of left front wall of thorax, initial encounter Condition: Stable Record reviewed to determine appropriate education?: Yes Instructions: ED Contusion Rib Follow-Up: Garrett Bowman DO [Primary Care Provider] - Prescriptions: HYDROcod/ACETAM 5/325 [[place] 5/325] 1 ea PO Q6H PRN #18 tablet PRN Reason: Pain Comments: On your x-rays, the lung appears normal without any obvious injury. There are no visible rib fractures. X-ray is not 100% accurate for rib fractures but would bulk picker on any displaced or notable fractures. Mostly it is going to be some bruising of the chest wall and ribs. This can still hurt for a week or 2 often. I would suggest some regular anti- inflammatories such as Aleve 2 tablets 2-3 times daily with food for the next 5 to 7 days. To that add Tylenol every 4-6 hours if needed for pain or hydrocodone/acetaminophen if needed for worse pain. Recheck if not improving well over the next several days to week more. I transmitted your prescription to [facility] pharmacy in [place]. I am prescribing a short course of narcotic pain medication for you. These are potentially dangerous and addictive medications that should be used carefully. These medications may constipate you. Take an [id number] stool softener such as docusate twice daily with plenty of water while taking these medications. If you go 24 hours without a bowel movement, take [id number] MiraLAX, per package instructions. Do not drink or drive while taking these medications. If you received narcotic or sedating medications while in the emergency department do not drive for 24 hours. Store this medication in a safe, secure place and out of reach of children. It is a violation of federal law to give or sell this medication to another person or to use in a manner other than prescribed. The ED will not refill narcotic prescriptions, including prescriptions lost or stolen. You can dispose of unwanted medications at the [facility]'s office or at several pharmacies such as [facility] Discharge Date/Time: 05/31/21 11:04
[2021-05-31] MEDS ORDERED: HYDROmorphone 1 MG/ML CARPUJECT IM STA (09:57)
[2021-05-31] MEDS ORDERED: IBUPROFEN 600 MG TABLET PO STA (09:57)
--- NOTE | 2021-05-31 10:26 | XRAY Report ---
PROCEDURE: Ribs w/PA Chest LT INDICATIONS: fall 4 days ago, pain still left lateral chest TECHNIQUE: 3 views of the left ribs were acquired, along with a single view chest. COMPARISON: August 20, 2017. FINDINGS: SUPPORT DEVICES: None. LUNGS/PLEURA: Bibasilar atelectasis/scarring. No focal consolidation, pleural effusion or space-occup noel pneumothorax. MEDIASTINUM: The cardiomediastinal silhouette is within normal limits. BONES/SOFT TISSUES: No significant chest wall abnormality. No acute, displaced rib fracture. IMPRESSION: 1.No acute, displaced rib fracture. 2.Bibasal atelectasis. Reviewed by: Gilbert Patterson MD on 05/31/2021 10:24 AM [facility] Approved by: Gilbert Patterson MD on 05/31/2021 10:24 AM [facility] Station ID: [id number]
[2021-05-31 11:04] VITALS: BP 147/90
== END 2021-05-31 11:04 | disposition home or self-care (01) ==
LOC: ED 09:15
DX: S20.212A Contusion of left front wall of thorax, initial encounter (principal); W01.0XXA Fall on same level from slipping, tripping and stumbling without subsequent striking against object, initial encounter; I10 Essential (primary) hypertension
CPT/HCPCS: 71101; 96372; 99282; 99283; A9270; J1170

== ENCOUNTER 2021-09-11 07:54 | Outpatient (CLI) | payer OTHER, MEDICARE ==
[2021-09-11 12:07] LABS: ALBUMIN 4.4 g/dL (3.2-5.5); ALBUMIN/GLOBULIN RATIO 1.8 (1.0-2.2); ALKALINE PHOSPHATASE 65 IU/L (42-121); ALT ALANINE AMINOTRANSFERASE 12 IU/L (10-60); AST ASPARTATE AMINOTRANSFERASE 15 IU/L (10-42); BASOPHILS % (AUTO) 0.9 %; BILIRUBIN,TOTAL 1.1 mg/dL (0.2-1.0); BUN - BLOOD UREA NITROGEN 15 mg/dL (6-20); CALCIUM 9.3 mg/dL (8.5-10.3); CARBON DIOXIDE - CO2 30 mmol/L (21-32); CHLORIDE 101 mmol/L (101-111); CHOL/HDL RATIO 3.2 (<4.4); CHOLESTEROL 249 mg/dL; CREATININE 0.8 mg/dL (0.4-1.0); EOSINOPHILS # (AUTO) 0.1 10^3/uL (0.0-0.7); EOSINOPHILS % (AUTO) 2.7 %; GFR - MDRD 72 (>89); GLUCOSE 99 mg/dL (70-100); HDL CHOLESTEROL 79 mg/dL; HGB - HEMOGLOBIN 13.4 g/dL (12.0-16.0); LDL CHOLESTEROL,CALCULATED 152 mg/dL; LDL/HDL RATIO 1.9 (<4.4); LYMPHOCYTES # (AUTO) 1.2 10^3/uL (1.5-3.5); LYMPHOCYTES % (AUTO) 26.8 %; MEAN CORPUSCULAR HEMOGLOBIN 33.9 pg (27.0-31.0); MEAN CORPUSCULAR HGB CONC 35.3 g/dL (32.0-36.0); MEAN CORPUSCULAR VOLUME 96.2 fL (81.0-99.0); MEAN PLATELET VOLUME 10.3 fL (7.9-10.8); MONOCYTES # (AUTO) 0.4 10^3/uL (0.0-1.0); MONOCYTES % (AUTO) 9.2 %; NEUTROPHILS # (AUTO) 2.6 10^3/uL (1.5-6.6); NEUTROPHILS % (AUTO) 59.9 %; PLT - PLATELET COUNT 221 10^3/uL (130-450); POTASSIUM 3.6 mmol/L (3.5-5.0); RED BLOOD COUNT 3.95 10^6/uL (4.20-5.40); RED CELL DISTRIBUTION WIDTH 12.9 % (12.0-15.0); SODIUM 140 mmol/L (135-145); TOTAL PROTEIN 6.9 g/dL (6.7-8.2); TRIGLYCERIDES 91 mg/dL; VLDL CHOLESTEROL 18 mg/dL; WHITE BLOOD COUNT 4.4 x10^3/uL (4.8-10.8)
[2021-09-11 12:21] LABS: THYROID STIMULATING HORMONE 1.92 uIU/mL (0.34-5.60)
== END 2021-09-11 07:55 | disposition home or self-care (01) ==
LOC: LAB.N 07:54
PROVIDERS: ATTEND Family Medicine
DX: I10 Essential (primary) hypertension (principal); E78.5 Hyperlipidemia, unspecified; E03.9 Hypothyroidism, unspecified
CPT/HCPCS: 36415; 80053; 80061; 83721; 84443; 85025

== ENCOUNTER 2021-12-28 08:30 | Outpatient (CLI) | payer OTHER, MEDICARE ==
--- NOTE | 2021-12-28 12:18 | DEXA Report ---
PROCEDURE: Dexa Spine and/or Hip INDICATIONS: POST MENOPAUSAL TECHNIQUE: Dual energy x-ray absorptiometry (DXA) was performed on a [employer] System. Regions measur ed are the AP Spine, femoral neck, and if needed forearm. COMPARISON: 11/19/2018. FINDINGS: Lumbar Spine: Bone Mineral Density 1.212 g/cm/cm,T score 0.3, normal. Previous T score of 0.4. Left Hip: Bone Mineral Density 0.924 g/cm/cm,T score -0.7, normal. Previous T score of -1.1. Left Femoral Neck: Bone Mineral Density 0.784 g/cm/cm, T score -1.8, osteopenia. Previous T score of -1.1. (T score greater or equal to -1.0: NORMAL) (T score from -1.1 to -2.4: OSTEOPENIA) (T score less than or equal to -2.5 to: OSTEOPOROSIS) Impression: Osteopenia. T-score at the left femoral neck has decreased since before. Patients with diagnosis of osteoporosis or osteopenia should have regular bone mineral density assess ment. For those eligible for Medicare, routine testing is allowed once every 2 years. Testing frequ ency can be increased for patients who have rapidly progressing disease or for those who are receivin g medical therapy to restore bone mass. Reviewed by: Bruce Amezcua MD on 12/28/2021 12:16 PM PDT Approved by: Bruce Amezcua MD on 12/28/2021 12:16 PM PDT Station ID: [id number]
== END 2021-12-28 23:59 | disposition home or self-care (01) ==
LOC: DI 08:30
PROVIDERS: ATTEND Physician Assistant
DX: M85.89 Other specified disorders of bone density and structure, multiple sites (principal); Z78.0 Asymptomatic menopausal state

== ENCOUNTER 2022-03-02 08:11 | Outpatient (CLI) | payer OTHER, MEDICARE ==
[2022-03-02 08:24] LABS: BASOPHILS % (AUTO) 0.7 %; EOSINOPHILS # (AUTO) 0.1 10^3/uL (0.0-0.7); EOSINOPHILS % (AUTO) 1.8 %; HCT - HEMATOCRIT 39.4 % (37.0-47.0); HGB - HEMOGLOBIN 13.9 g/dL (12.0-16.0); LYMPHOCYTES # (AUTO) 1.2 10^3/uL (1.5-3.5); LYMPHOCYTES % (AUTO) 27.2 %; MEAN CORPUSCULAR HEMOGLOBIN 33.5 pg (27.0-31.0); MEAN CORPUSCULAR HGB CONC 35.3 g/dL (32.0-36.0); MEAN CORPUSCULAR VOLUME 94.9 fL (81.0-99.0); MEAN PLATELET VOLUME 9.1 fL (7.9-10.8); MONOCYTES # (AUTO) 0.4 10^3/uL (0.0-1.0); MONOCYTES % (AUTO) 8.6 %; NEUTROPHILS # (AUTO) 2.7 10^3/uL (1.5-6.6); NEUTROPHILS % (AUTO) 61.5 %; PLT - PLATELET COUNT 256 10^3/uL (130-450); RED BLOOD COUNT 4.15 10^6/uL (4.20-5.40); RED CELL DISTRIBUTION WIDTH 12.5 % (12.0-15.0); WHITE BLOOD COUNT 4.4 x10^3/uL (4.8-10.8)
[2022-03-02 08:41] LABS: ALBUMIN 4.8 g/dL (3.2-5.5); ALBUMIN/GLOBULIN RATIO 1.9 (1.0-2.2); ALKALINE PHOSPHATASE 62 IU/L (42-121); ALT ALANINE AMINOTRANSFERASE 15 IU/L (10-60); AST ASPARTATE AMINOTRANSFERASE 16 IU/L (10-42); BILIRUBIN,TOTAL 1.3 mg/dL (0.2-1.0); BUN - BLOOD UREA NITROGEN 15 mg/dL (6-20); CALCIUM 9.5 mg/dL (8.5-10.3); CARBON DIOXIDE - CO2 28 mmol/L (21-32); CHLORIDE 98 mmol/L (101-111); CHOL/HDL RATIO 3.7 (<4.4); CHOLESTEROL 278 mg/dL; GFR - MDRD 56 (>89); GLUCOSE 108 mg/dL (70-100); HDL CHOLESTEROL 75 mg/dL; LDL CHOLESTEROL,CALCULATED 174 mg/dL; LDL/HDL RATIO 2.3 (<4.4); POTASSIUM 3.6 mmol/L (3.5-5.0); SODIUM 138 mmol/L (135-145); TOTAL PROTEIN 7.3 g/dL (6.7-8.2); TRIGLYCERIDES 143 mg/dL; VLDL CHOLESTEROL 29 mg/dL
== END 2022-03-02 08:12 | disposition home or self-care (01) ==
LOC: LAB 08:11
PROVIDERS: ATTEND Physician Assistant
DX: E78.5 Hyperlipidemia, unspecified (principal); Z51.81 Encounter for therapeutic drug level monitoring
CPT/HCPCS: 36415; 80053; 80061; 83721; 85025

== ENCOUNTER 2022-03-30 12:06 | Outpatient (CLI) | payer MEDICARE, OTHER ==
--- NOTE | 2022-03-30 14:33 | XRAY Report ---
PROCEDURE: Abdomen 2 View X-Ray INDICATIONS: ABDOMINAL PAIN RLQ TECHNIQUE: 2 views of the abdomen were acquired. COMPARISON: None FINDINGS: Surgical changes and devices: None. Bowel: No pneumoperitoneum. Scattered small bowel and colonic gas. No dilated loops of bowel identif ied. Soft tissues: No suspicious abdominal calcifications. Bones: No suspicious bony abnormalities. Scoliosis. IMPRESSION: Nonobstructive bowel gas pattern. Consider further evaluation with CT abdomen pelvis with IV contrast. Reviewed by: Bakari Kumar MD on 03/30/2022 2:32 PM PST Approved by: Bakari Kumar MD on 03/30/2022 2:32 PM PST Station ID: [id number]
== END 2022-03-30 12:07 | disposition home or self-care (01) ==
LOC: DI 12:06
PROVIDERS: ATTEND Physician Assistant
DX: R10.31 Right lower quadrant pain (principal)

== ENCOUNTER 2022-04-28 12:49 | Outpatient (CLI) | payer MEDICARE, OTHER ==
[2022-04-28] MEDS ORDERED: iohexoL-300 100 ML VIAL ONE (13:22)
[2022-04-28 13:35] LABS: CREATININE 0.9 mg/dL (0.4-1.0)
--- NOTE | 2022-04-28 15:38 | CT Report ---
PROCEDURE: CT abdomen and pelvis INDICATIONS: RLQ ABD PAIN CONTRAST: 100ml omni 300 TECHNIQUE: After the administration of contrast, 5 mm thick sections acquired from the diaphragms to the sym physis. 5 mm thick coronal and sagittal reformats were acquired. For radiation dose reduction, the following was used: automated exposure control, adjustment of mA and/or kV according to patient size . COMPARISON: None. FINDINGS: Image quality: Excellent. ABDOMEN: Lung bases: Lung bases are clear. Heart size is normal. Solid organs: Liver and spleen are normal in size and enhancement. Gallbladder unremarkable. Bilia ry system is non dilated. Pancreas enhances normally. No adrenal nodules. Kidneys demonstrate norm al size and enhancement, without hydronephrosis. Peritoneum and bowel: Bowel loops demonstrate normal wall thickness and caliber. No free fluid or a ir. Normal appendix identified multiple diverticula arise from the sigmoid and descending colon witho ut evidence of diverticulitis. Nodes and vessels: No retroperitoneal or mesenteric adenopathy by size criteria. Aorta and inferio r vena cava are normal in size. Miscellaneous: No ventral hernias. PELVIS: Genitourinary: Bladder wall thickness is normal. Miscellaneous: No inguinal hernias or adenopathy. Bones: No suspicious bony lesions. No vertebral body compression fractures. IMPRESSION: Sigmoid diverticulosis without evidence of diverticulitis Reviewed by: Fredis Price MD on 04/28/2022 2:36 PM [place] Approved by: Fredis Price MD on 04/28/2022 2:36 PM [place] Station ID: [id number]
[2022-04-28] MEDS ORDERED: DIATRIZOATE MEGLU/DIATRIZO SOD 30 ML BOTTLE PO ONE (16:13)
[2022-04-28] MEDS ORDERED: iohexoL-300 100 ML VIAL IVP ONE (16:13)
== END 2022-04-28 12:50 | disposition home or self-care (01) ==
LOC: LAB 12:49
PROVIDERS: ATTEND Physician Assistant
DX: R10.31 Right lower quadrant pain (principal); K57.30 Diverticulosis of large intestine without perforation or abscess without bleeding
CPT/HCPCS: 36415; 74177; 82565; Q9967

== ENCOUNTER 2022-05-14 16:22 | Emergency (ER) | payer MEDICARE, OTHER ==
--- NOTE | 2022-05-14 18:30 | ED Physician Documentation ---
PD HPI LOWER EXT INJURY - Stated complaint Stated Complaint: RT FT LAC - Chief complaint Chief Complaint: Laceration - History obtained from History obtained from: Patient - History of Present Illness PD HPI LOW EXT INJURY LOCATION: Right, Foot Type of injury: Laceration (she dropped jar of salsa on foot/floor. the jar broke and chunk of glass caused laceration to top of foot. no numbness/weakness. bleeding well but not spurting at home. Wrapped it at home and came here. Spouse drove.) Where injury occurred: Home Timing - onset: How many minutes ago (30), Today Timing - details: Abrupt onset, Still present Worsened by: Palpating Associated symptoms: No: Weakness, Numbness Similar symptoms before: Has not had sx before Review of Systems Skin: reports: Laceration (s) Neurologic: denies: Focal weakness, Numbness PD PAST MEDICAL HISTORY - Past Medical History Cardiovascular: Hypertension, High cholesterol, Other Respiratory: Pneumonia, Sleep apnea Endocrine/Autoimmune: None, HyPOthyroidism GI: GERD, Hemorrhoids : Frequency HEENT: None Psych: Anxiety, Bipolar disorder, Panic attacks, Post traumatic stress disorder, Other Musculoskeletal: Osteoarthritis Derm: None - Past Surgical History Past Surgical History: Yes General: Other Ortho: Other /NEGOTIATOR: Other HEENT: Tonsil/Adenoidectomy - Present Medications Home Medications: Ambulatory Orders Medication Instructions Recorded Confirmed ALPRAZolam [Alprazolam] 1.5 mg PO TID 06/27/16 05/31/21 Buspirone HCl 60 mg PO DAILY 06/27/16 05/31/21 FLUoxetine [PROzac] 15 mg PO DAILY 06/27/16 05/31/21 Prazosin [Minipress] 5 mg PO QPM 06/27/16 05/31/21 buPROPion HCL [Bupropion HCl Sr] 300 mg PO BID 06/27/16 05/31/21 hydroCHLOROthiazide 25 mg PO DAILY 06/27/16 05/31/21 [Hydrochlorothiazide] clonazePAM [Clonazepam] 3 mg PO BID 09/02/16 05/31/21 Cariprazine HCl [Vraylar] 3 mg PO DAILY 05/31/21 05/31/21 Gabapentin [Neurontin] 900 mg PO DAILY 05/31/21 05/31/21 HYDROcod/ACETAM 5/325 [[place] 5/325] 1 ea PO Q6H PRN #18 tablet 05/31/21 Meloxicam [Mobic] 15 mg PO DAILY 05/31/21 05/31/21 lamoTRIgine [LaMICtal] 225 mg PO DAILY 05/31/21 05/31/21 - Allergies Allergies/Adverse Reactions: Allergies Allergy/AdvReac Type Severity Reaction Status Date / Time methotrexate Allergy Anaphylaxis Verified 05/14/22 16:31 Sulfa (Sulfonamide Allergy Edema Verified 05/14/22 16:31 Antibiotics) adhesive tape AdvReac Unknown Verified 05/14/22 16:31 risperidone AdvReac Unknown Verified 05/14/22 16:31 - Social History Does the pt smoke?: No Smoking Status: Never smoker Does the pt drink ETOH?: No Does the pt have substance abuse?: No PD ED PE NORMAL - Vitals Vital signs reviewed: Yes - General General: Alert and oriented X 3, No acute distress, Well developed/nourished - Derm Derm: Normal color, Warm and dry - Extremities Extremities: Other (dorsum foot with laceration. no fb noted. length 3 cm. Goes to fatty tissue layer. Minimal bleeding on exam. the lac is medial to the dp pulse. No bony tenderness to palpation. ) - Neuro Neuro: Alert and oriented X 3, No motor deficit, No sensory deficit Results - Vitals Vitals: Vital Signs - 24 hr 05/14/22 05/14/22 16:27 19:35 Temperature 36.4 C L 36.5 C Heart Rate 90 83 Respiratory 16 15 Rate Blood Pressure 152/81 H 181/91 H O2 Saturation 99 100 Oxygen O2 Source Room air Procedures - Laceration (location) anterior ankle foot dorsum Length in cm: 4.4 Wound type: Linear, Into subcut fat Neurovascular status: Sensory intact, Motor intact, Vascular intact Anesthesia: Lidocaine 1% Wound preparation: Irrigated copiously NS, Wound explored, To the base Skin layer closure: Nylon, Running, Size #-0 - enter number (4), Sutures - enter # (14) Other: Patient tolerated well, No complications, Neurovascular intact, Dressing applied PD Medical Decision Making - ED course Complexity details: reviewed results (low suspicon for fracture based on exam, so considered but did not get xrays. ), considered differential (dropped salsa jar on fott with broken glass causing laceration. denies fb sensation. bleeding continued at home despite wrapping. ), d/w patient Departure - Departure Disposition: 01 Home, Self Care Clinical Impression: Laceration of ankle Qualifiers: Encounter type: initial encounter Laterality: right Qualified Code(s): S91.011A - Laceration without foreign body, right ankle, initial encounter Condition: Stable Record reviewed to determine appropriate education?: Yes Instructions: ED Laceration Foot Follow-Up: Adrianna Sharpe PA [Primary Care Provider] - Comments: It is okay to wash and shower. Clean off the wound twice a day with soap and water, or peroxide and water. Apply some antibiotic ointment to it to keep it moist. Also to watch for signs of infection such as purulence, redness or increasing pain. Return to your primary care or the ER at the specified time for suture removal. Suture removal 9 to 10 days. Its okay to be walking and regular activity. Avoid running jumping or higher pressure on the ankle which I understand you do not typically do anyway. Tylenol and/or ibuprofen regularly as needed for pain. Recheck if any signs of infection. You were given a tetanus booster here today. Discharge Date/Time: 05/14/22 19:39
[2022-05-14] MEDS ORDERED: ACETAMINOPHEN 325 MG TABLET PO STA (19:10)
[2022-05-14] MEDS ORDERED: IBUPROFEN 600 MG TABLET PO STA (19:10)
[2022-05-14] MEDS ORDERED: TETANUS/DIPHTHERIA/PERTUSSIS 0.5 ML SYRINGE IM ONE (19:11)
[2022-05-14 19:36] VITALS: BP 181/91
== END 2022-05-14 19:39 | disposition home or self-care (01) ==
LOC: ED 16:22
DX: S91.011A Laceration without foreign body, right ankle, initial encounter (principal); W25.XXXA Contact with sharp glass, initial encounter; Y92.009 Unspecified place in unspecified non-institutional (private) residence as the place of occurrence of the external cause; I10 Essential (primary) hypertension; E03.9 Hypothyroidism, unspecified; E78.00 Pure hypercholesterolemia, unspecified; Z79.899 Other long term (current) drug therapy; Z23 Encounter for immunization
CPT/HCPCS: 12002; 90471; 90715; 99283; A9270

== ENCOUNTER 2022-07-24 08:19 | Outpatient (CLI) | payer OTHER, MEDICARE ==
--- NOTE | 2022-07-24 15:10 | CT Report ---
PROCEDURE: LOWER EXTREMITY WO - RT INDICATIONS: RIGHT ANKLE PAIN TECHNIQUE: Noncontrast 3-mm axial sections acquired from the distal tibial shaft to the plantar calcaneus, with coronal and sagittal reformats. For radiation dose reduction, the following was used: automated exp osure control, adjustment of mA and/or kV according to patient size. COMPARISON: Right lower leg radiograph dated 09/14/2020. FINDINGS: Image quality: Diagnostic. Significant beam hardening artifacts from ankle surgical hardware are see n. Bones: There is prior tibiotalar arthroplasty with fusion of distal tibiofibular syndesmosis and fix ation over lateral aspect of posterior calcaneus. Significant beam hardening artifact from surgical h ardware is seen. No evidence of gross hardware loosening or failure. There is no acute fracture or di slocation. Moderate osteoarthritic changes are noted throughout midfoot and hindfoot joints most nota gary involving talonavicular joint and the subtalar joint with significant joint space narrowing and s ubchondral sclerosis. Complete bony union is noted at distal tibiofibular syndesmosis. No suspicious bony lesions. Soft tissues: There is no gross full-thickness ankle tendon rupture. Thickened Achilles tendon is no pamela suggestive of tendinosis. No Achilles tendon rupture. Visualized plantar fascia is intact. No sig nificant joint effusion or abnormal soft tissue calcification is seen. Impression: 1. Postsurgical changes in hindfoot joints as described above. No evidence of hardware loosening or f ailure. No acute fracture or dislocation. Complete bony union at distal tibiofibular syndesmosis. 2. Moderate osteoarthritic changes in midfoot and hindfoot joints most notably in talonavicular joint and subtalar joint. 3. No significant joint effusion or abnormal soft tissue calcifications. No full-thickness extensor, flexor peroneus tendon rupture. 4. Suggestion of moderate tendinosis involving the Achilles tendon. No full-thickness Achilles tendon rupture. Reviewed by: Jose Manuel Torre MD on 07/24/2022 3:09 PM PDT Approved by: Jose Manuel Torre MD on 07/24/2022 3:09 PM PDT Station ID: [id number]
== END 2022-07-24 08:20 | disposition home or self-care (01) ==
LOC: DI 08:19
PROVIDERS: ATTEND Podiatrist Foot & Ankle Surgery
DX: M19.071 Primary osteoarthritis, right ankle and foot (principal); Z96.661 Presence of right artificial ankle joint

== ENCOUNTER 2022-11-01 07:32 | Day surgery (SDC) | payer MEDICARE, OTHER ==
[2022-11-01] MEDS ORDERED: LACTATED RINGERS 1,000 ML IV ONE ×2 (07:37→08:47)
--- NOTE | 2022-11-01 08:10 | ANESTHESIA ---
Pre-Anesthesia VS, & Labs - Diagnosis screening, pos fam hx - Procedure colonoscopy Vital Signs: Temp Pulse Resp BP Pulse Ox O2 Flow Rate 36.1 C L 69 16 122/73 98 11/01/22 07:38 11/01/22 07:38 11/01/22 07:38 11/01/22 07:38 11/01/22 07:38 Height: 5 ft 2 in Weight (kg): 76 kg Body Mass Index: 30.6 BMI Classification: Obese - NPO >8 hours - Is Patient ?: No - Lab Results Lab results reviewed: Yes Home Medications and Allergies Home Medications: Ambulatory Orders Cariprazine HCl [Vraylar] 3 mg PO DAILY 10/31/22 ALPRAZolam [Alprazolam] 1 mg PO QPM 06/27/16 Buspirone HCl 30 mg PO BID 06/27/16 FLUoxetine [PROzac] 20 mg PO DAILY 06/27/16 Prazosin [Minipress] 5 mg PO QPM 06/27/16 buPROPion HCL [Bupropion HCl Sr] 300 mg PO DAILY 06/27/16 hydroCHLOROthiazide [Hydrochlorothiazide] 50 mg PO DAILY 06/27/16 clonazePAM [Clonazepam] 1 mg PO QPM 09/02/16 Gabapentin [Neurontin] 900 mg PO DAILY 05/31/21 Meloxicam [Mobic] 15 mg PO DAILY 05/31/21 lamoTRIgine [LaMICtal] 225 mg PO DAILY 05/31/21 Cariprazine HCl [Vraylar] 3 mg PO DAILY 10/31/22 Allergies/Adverse Reactions: Allergies Allergy/AdvReac Type Severity Reaction Status Date / Time methotrexate Allergy Anaphylaxis Verified 10/31/22 13:21 Sulfa (Sulfonamide Allergy Edema Verified 10/31/22 13:21 Antibiotics) adhesive tape AdvReac Unknown Verified 10/31/22 13:21 risperidone AdvReac Unknown Verified 10/31/22 13:21 Anes History & Medical History - Anesthetic History Anesthesia Complications: reports: No previous complications Family history of Anesthesia Complications: Denies Family history of Malignant Hyperthermia: Denies - Medical History Cardiovascular: reports: Hypertension, High cholesterol Pulmonary: reports: Pneumonia (hx), Sleep apnea Gastrointestinal: reports: GERD (w/c), Hemorrhoids Urinary: reports: Frequency Musculoskeletal: reports: Osteoarthritis, Rheumatoid arthritis Endocrine/Autoimmune: Skin: reports: Psoriasis, Rosacea Smoking Status: Never smoker - Surgical History General: reports: Other Eyes Ears Nose Throat (EENT): reports: Tonsil/Adenoidectomy Gynecologic: reports: Other Orthopedic: reports: Other Exam General: Alert, Oriented x3, Cooperative Dental: Dentures full Upper Mouth Openin Fingerbreadth Neck Mobility: Normal Mallampati classification: II Thyromental Distance: 4-6 cm Respiratory: Lungs clear Cardiovascular: Regular rate Plan Anesthesia Type: General, MAC Consent for Procedure(s) Verified and Reviewed: Yes Code Status: Attempt Resuscitation ASA classification: 2-Mild systemic disease Is this case an emergency?: No
[2022-11-01] MEDS ORDERED: PROPOFOL 500 MG/50 ML 500 MG/50 ML VIAL ONE (08:13)
[2022-11-01 09:21] VITALS: BP 134/76; O2SAT 97
--- NOTE | 2022-11-01 10:50 | ANESTHESIA POST OP EVALUATION ---
Anesthesia Post Eval - Post Anesthesia Eval Vitals: Last Vital Signs Temp 36.6 C 11/01/22 09:11 Pulse 64 11/01/22 09:11 Resp 14 11/01/22 09:11 BP 134/76 H 11/01/22 09:11 Pulse Ox 97 11/01/22 09:11 O2 Flow Rate CV Function Including HR & BP: Stable Pain Control: Satisfactory Nausea & Vomiting: Negative Mental Status: Baseline Respiratory Status: Airway Patent Hydration Status: Satisfactory Anesthesia Complications: None
== END 2022-11-01 07:33 | disposition home or self-care (01) ==
LOC: SDS 07:32
PROVIDERS: ATTEND Surgery
DX: Z12.11 Encounter for screening for malignant neoplasm of colon (principal); Z80.0 Family history of malignant neoplasm of digestive organs; K57.30 Diverticulosis of large intestine without perforation or abscess without bleeding; G47.33 Obstructive sleep apnea (adult) (pediatric); I10 Essential (primary) hypertension; E66.9 Obesity, unspecified; Z68.30 Body mass index [BMI] 30.0-30.9, adult
CPT/HCPCS: G0105; J7120

== ENCOUNTER 2023-01-26 14:35 | Emergency (ER) | payer OTHER, MEDICARE ==
[2023-01-26 14:47] VITALS: BP 140/73; O2SAT 98
--- NOTE | 2023-01-26 15:53 | ED Physician Documentation ---
PD HPI SKIN - Stated complaint Stated Complaint: LT ARM IRRITATION - Chief complaint Chief Complaint: Wound - History obtained from History obtained from: Patient - History of Present Illness Timing - onset: How many weeks ago (1) Timing - duration: Weeks (1) Timing - details: Gradual onset, Still present Location: LUE (dorsum wrist where she usually wears watch. Noted red rounded area that has been expanding slowly. Itchy. no drainage.) Quality / character: Itchy, Discolored (red), Raised. No: Painful, Vesicular, Draining PD PAST MEDICAL HISTORY - Past Medical History Past Medical History: Yes Cardiovascular: Hypertension, High cholesterol Respiratory: Pneumonia, Sleep apnea Endocrine/Autoimmune:  GI: GERD, Hemorrhoids : Frequency HEENT: None Psych: Depression, Anxiety, Bipolar disorder, Panic attacks, Post traumatic stress disorder Musculoskeletal: Osteoarthritis, Rheumatoid arthritis Derm: Psoriasis, Rosacea - Past Surgical History Past Surgical History: Yes General: Other Ortho: Other /[employer]: Other HEENT: Tonsil/Adenoidectomy - Present Medications Home Medications: Ambulatory Orders Medication Instructions Recorded Confirmed ALPRAZolam [Alprazolam] 1 mg PO QPM 06/27/16 11/01/22 Buspirone HCl 30 mg PO BID 06/27/16 11/01/22 FLUoxetine [PROzac] 20 mg PO DAILY 06/27/16 11/01/22 Prazosin [Minipress] 5 mg PO QPM 06/27/16 11/01/22 buPROPion HCL [Bupropion HCl Sr] 300 mg PO DAILY 06/27/16 11/01/22 hydroCHLOROthiazide 50 mg PO DAILY 06/27/16 11/01/22 [Hydrochlorothiazide] clonazePAM [Clonazepam] 1 mg PO QPM 09/02/16 11/01/22 Gabapentin [Neurontin] 900 mg PO DAILY 05/31/21 11/01/22 Meloxicam [Mobic] 15 mg PO DAILY 05/31/21 11/01/22 lamoTRIgine [LaMICtal] 225 mg PO DAILY 05/31/21 11/01/22 Cariprazine HCl [Vraylar] 3 mg PO DAILY 10/31/22 11/01/22 Mupirocin 2% Oint [Bactroban 2% 1 applic TOP TID #15 gm 01/26/23 Oint] Nystatin 1 applic TP TID #15 gm 01/26/23 - Allergies Allergies/Adverse Reactions: Allergies Allergy/AdvReac Type Severity Reaction Status Date / Time methotrexate Allergy Anaphylaxis Verified 01/26/23 14:39 Sulfa (Sulfonamide Allergy Edema Verified 01/26/23 14:39 Antibiotics) adhesive tape AdvReac Unknown Verified 01/26/23 14:39 risperidone AdvReac Unknown Verified 01/26/23 14:39 - Social History Does the pt smoke?: No Smoking Status: Never smoker Does the pt drink ETOH?: No Does the pt have substance abuse?: No - Immunizations Immunizations are current?: No - POLST Patient has POLST: No PD ED PE NORMAL - Vitals Vital signs reviewed: Yes - General General: Alert and oriented X 3, Well developed/nourished - Derm Derm: Normal color, Warm and dry, Other (rounded mostly flat red area with mild scaling/raised at edges. No underlying induration. No vesicles. ) Results - Vitals Vitals: Vital Signs - 24 hr 01/26/23 14:39 Temperature 36.5 C Heart Rate 75 Respiratory 16 Rate Blood Pressure 140/73 H O2 Saturation 98 Oxygen O2 Source Room air PD Medical Decision Making - ED course Complexity details: considered differential (looks likely to be tinea infection. ), d/w patient Departure - Departure Disposition: 01 Home, Self Care Clinical Impression: Skin rash, Tinea corporis Condition: Stable Record reviewed to determine appropriate education?: Yes Instructions: ED Infec Skin Fungal Tinea Prescriptions: Mupirocin 2% Oint [Bactroban 2% Oint] 1 applic TOP TID #15 gm Nystatin 1 applic TP TID #15 gm Comments: This looks mostly like a localized yeast infection of the skin. I would treat it with topical antifungal 2-3 times daily and this should improve over the next several days then resolve over 3 to 5 days. It does not look bacterial to me at this time. That said it is easy enough to also use an antibiotic ointment in the area 2. I do not feel suspicious enough for bacterial infection to need oral antibiotics. Recheck if not improving over the next few days and resolved over 3 to 5 days. Return if worse. I sent your prescription to your preferred pharmacy. Forms: PCP List Discharge Date/Time: 01/26/23 16:28
== END 2023-01-26 16:28 | disposition home or self-care (01) ==
LOC: ED 14:35
DX: B35.4 Tinea corporis (principal); R21 Rash and other nonspecific skin eruption; I10 Essential (primary) hypertension; E78.00 Pure hypercholesterolemia, unspecified; Z79.899 Other long term (current) drug therapy
CPT/HCPCS: 99282; 99283

== ENCOUNTER 2023-02-25 15:08 | Outpatient (CLI) | payer OTHER, MEDICARE ==
--- NOTE | 2023-02-27 09:39 | Mammography Report ---
BILATERAL DIGITAL SCREENING MAMMOGRAM 3D/2D: 02/25/2023 CLINICAL: Routine screening. Comparison is made to exams dated: 12/28/2021 mammogram, 08/23/2020 mammogram, 10/06/2018 mammogram, 07/24 mammogram, 03/14/2017 mammogram, and 08/16/2016 mammogram - [facility]. There are scattered areas of fibroglandular density in both breasts (category b / 25%-50% glandular t issue). No significant masses, calcifications, or other findings are seen in either breast. There has been no significant interval change. IMPRESSION: NEGATIVE There is no mammographic evidence of malignancy. A 1 year screening mammogram is recommended. Based on the Tyrer Cuzick model (a risk assessment model) the patients lifetime risk is 10.9% and he r 10 year risk is 5.3%. According to the ACR, ACS, and NCCN guidelines, an annual breast MRI exam amor ng with mammogram is recommended if the patients lifetime risk is 20% or greater. This exam was interpreted at Station ID: [id number]. NOTE: For mammograms, a report in lay terms will be sent to the patient. Approximately 15% of breast malignancies will not be visualized mammographically. In the management of a palpable breast mass, a negative mammogram must not discourage biopsy of a clinically suspicious lesion. Electronically Signed By: Katty [email or web address]:02/26/2023 12:29:45 letter sent: No_Letter ACR BI-RADS Category 1: Negative 3341F PARENCHYMAL PATTERN: (A) - The breast(s) demonstrate(s) scattered fibroglandular densities. BI-RADS CATEGORY: (1) - 1 Mammogram [id number] 1 year screening LATERALITY: (B)
== END 2023-02-25 15:09 | disposition home or self-care (01) ==
LOC: DI 15:08
DX: Z12.31 Encounter for screening mammogram for malignant neoplasm of breast (principal); R92.323 Mammographic fibroglandular density, bilateral breasts